=== PATIENT | female | born 1960 | race Caucasian/White ===

== ENCOUNTER 2017-08-30 08:17 | Day surgery (SDC) | payer OTHER ==
[2016-12-14 12:42] VITALS: BMI 35.6
[2017-08-30] MEDS ORDERED: Lactated Ringer's 1,000 ML IV ONE (09:07)
[2017-08-30] MEDS ORDERED: Propofol 10 mg/ml Inj (20 ML) ONE (10:18)
[2017-08-30 10:38] VITALS: TEMP 96.8; O2SAT 100
[2017-08-30 10:54] VITALS: BP 111/65; PULSE 62; RESP 14
== END 2017-08-30 11:26 | disposition home or self-care (01) ==
LOC: H.ENDO 08:17
PROVIDERS: ATTEND Internal Medicine Gastroenterology
DX: K21.9 Gastro-esophageal reflux disease without esophagitis (principal); J45.909 Unspecified asthma, uncomplicated; E78.5 Hyperlipidemia, unspecified; K44.9 Diaphragmatic hernia without obstruction or gangrene; K31.9 Disease of stomach and duodenum, unspecified; K30 Functional dyspepsia; R13.10 Dysphagia, unspecified; K29.50 Unspecified chronic gastritis without bleeding
CPT/HCPCS: 43239; 88305; J2704; J7120